=== PATIENT | female | born 1975 | race Caucasian/White ===

== ENCOUNTER 2017-11-08 09:06 | Emergency (ER) | payer OTHER ==
[2017-11-08 09:13] VITALS: BMI 23.6
[2017-11-08 09:30] VITALS: RESP 18; TEMP 98.3
--- NOTE | 2017-11-08 10:12 | ED PDOC ---
Arrival/HPI - General Chief Complaint: Trauma Time Seen by Provider: 11/08/17 09:56 Historian: Patient - History of Present Illness Narrative History of Present Illness (Text): 11/08/17 10:08 42-year-old female presents today with left forearm pain and right lower leg pain status post injury. Patient states she slipped on a mat and fell forward landing on the left arm and hitting the calf on a metal bar. Patient denies numbness weakness or tingling in the extremities. Patient denies hitting her head. Denies headaches dizziness or weakness. Denies neck or back pain. No chest pain or shortness of breath. No abdominal pain. No medications have been taken for pain at home incident occurred prior to arrival Time/Duration: Prior to Arrival Symptom Onset: Sudden Symptom Course: Unchanged Quality: Aching Severity Level: Mild Past Medical History - Provider Review Nursing Documentation Reviewed: Yes - Travel History Have you recently traveled outside [place] w/in the past 3 mons?: No - Infectious Disease Hx of Infectious Diseases: None - Pulmonary Hx Asthma: Yes - Psychiatric Hx Substance Use: No Family/Social History - Physician Review Nursing Documentation Reviewed: Yes Family/Social History: Unknown Family HX Smoking Status: Never Smoked Hx Alcohol Use: No Hx Substance Use: No Allergies/Home Meds Allergies/Adverse Reactions: Allergies No Known Allergies Allergy (Verified 11/08/17 09:16) Home Medications: Home Meds Medication Instructions Recorded Confirmed Albuterol HFA [Ventolin HFA 90 1 puff IH PRN PRN 11/08/17 11/08/17 mcg/actuation (8 g)] Review of Systems - Review of Systems Constitutional: absent: Fatigue, Fevers Respiratory: absent: SOB, Cough Cardiovascular: absent: Chest Pain, Palpitations Gastrointestinal: absent: Abdominal Pain, Nausea, Vomiting Musculoskeletal: Arthralgias (left arm pain. left leg pain) Skin: absent: Rash, Pruritis Neurological: absent: Headache, Dizziness Psychiatric: absent: Anxiety, Depression Physical Exam Vital Signs Reviewed: Yes Vital Signs Temp Pulse Resp BP Pulse Ox 11/08/17 09:06 98.3 F 76 18 117/71 95 Temperature: Afebrile Blood Pressure: Normal Pulse: Regular Respiratory Rate: Normal Appearance: Positive for: Well-Appearing, Non-Toxic, Comfortable Pain Distress: None Mental Status: Positive for: Alert and Oriented X 3 - Systems Exam Head: Present: Atraumatic Mouth: Present: Moist Mucous Membranes Respiratory/Chest: Present: Clear to Auscultation Cardiovascular: Present: Regular Rate and Rhythm Abdomen: No: Tenderness Upper Extremity: Present: Normal ROM, NORMAL PULSES, Tenderness (left arm; + ttp over dorsal/medial aspect of forearm. no edema, no erythema; no ecchymosis; full rom of elbow and wrist; no elbow or wrist tenderness. sensation and distal pulses intact. cap refill <2. ), Neurovascularly Intact, Capillary Refill < 2s. No: Swelling, Erythema, Deformity Lower Extremity: Present: Normal ROM, Tenderness (right lower leg; there is a small area of ecchymosis noted noted to the posterior lower leg; no edema, no erythema. sensation and distal pulses intact; cap refill <2. ). No: Edema, Swelling, Erythema, Deformity, Capillary Refill < 2 s Neurological: Present: GCS=15, Speech Normal Skin: Present: Warm, Dry, Normal Color. No: Rashes Psychiatric: Present: Alert, Oriented x 3 Medical Decision Making ED Course and Treatment: 11/08/17 10:12 Patient nontoxic well-appearing in no distress with stable vital signs X-rays of the left forearm; no fracture xray of the right lower leg; no fracture toradol IM I discussed all results with patient advised to followup with the orthopedist for the next 2 days. Return if symptoms worsen persist or new symptoms develop i advised the patient that although the xrays show no fracture; there is still a possibility for ligamentous or tendon injury the patient must see the orthopedist for further evaluation. Patient verbalizes understanding of discharge instructions and need for immediate followup. all aspects of this case were discussed the attending of record. Impression: forearm pain, leg pain Motrin every 6 hours as needed for pain Rest, ice, compression, elevation Followup with the orthopedist within the next 2 days Followup with primary care physician within the next 2 days Return if any other concerning symptoms develop 11/08/17 11:13 - RAD Interpretation Radiology Orders: 11/08/17 09:56 FOREARM LEFT [RAD] Stat TIBIA FIBULA RT FALL PROTOCOL [RAD] Stat Disposition/Present on Arrival - Present on Arrival Any Indicators Present on Arrival: No History of DVT/PE: No History of Uncontrolled Diabetes: No Urinary Catheter: No History of Decub. Ulcer: No History Surgical Site Infection Following: None - Disposition Have Diagnosis and Disposition been Completed?: Yes Diagnosis: Forearm pain, Leg pain Disposition: HOME/ ROUTINE Disposition Time: 11:15 Patient Plan: Discharge Condition: GOOD Discharge Instructions (ExitCare): Muscle and Bone Pain (DC) Additional Instructions: Motrin every 6 hours as needed for pain Rest, ice, compression, elevation Followup with the orthopedist within the next 2 days Followup with primary care physician within the next 2 days Return if any other concerning symptoms develop Prescriptions: Ibuprofen [Motrin] 600 mg PO Q6H PRN #20 tab PRN Reason: pain/fever reduction Referrals: [facility] [Outside] - Follow up with primary Hortencia Singh MD [Staff Provider] - Follow up with primary Marielos Dubose MD [Medical Doctor] - Follow up with primary Forms: [facility] ([place]), WORK NOTE
[2017-11-08 11:30] VITALS: BP 116/67; PULSE 78; O2SAT 97
--- NOTE | 2017-11-08 12:11 | RAD ---
Date of service: 11/08/2017 PROCEDURE: Radiographs of the Left Forearm HISTORY: forearm pain COMPARISON: None available. TECHNIQUE: Frontal and lateral views obtained. FINDINGS: BONES: No fracture or destructive lesion. JOINT SPACES: Unremarkable. OTHER FINDINGS: None. IMPRESSION: Unremarkable radiographs of the left forearm.
--- NOTE | 2017-11-08 12:12 | RAD ---
Date of service: 11/08/2017 PROCEDURE: Radiographs of the right tibia and fibula. HISTORY: fall, right lower leg pain COMPARISON: None available TECHNIQUE: Frontal and lateral views obtained. FINDINGS: BONES: No fracture or destructive lesion. JOINT SPACES: Unremarkable. OTHER FINDINGS: None. IMPRESSION: Unremarkable radiographs of the right tibia and fibula.
== END 2017-11-08 11:39 | disposition home or self-care (01) ==
LOC: ED 09:06
DX: M79.661 Pain in right lower leg (principal); M79.632 Pain in left forearm
CPT/HCPCS: 73090; 73590; 96372; 99285; J1885